=== PATIENT | female | born 1980 | race African-American/Black ===

== ENCOUNTER 2025-05-31 11:22 | Emergency (ER) | payer BC ==
[2025-05-31] MEDS ORDERED: Droperidol 5 MG/2 ML VIAL ONE (11:54)
[2025-05-31 12:49] LABS: #Basophils Less than 0.03 10x3/uL (0.0-0.2); #Eosinophils 0.08 10x3/uL (0.0-0.7); #Monocytes 0.43 10x3/uL (0.11-0.59); #Neutrophils 4.52 10x3/uL (1.40-6.50); %Basophils 0.3 % (0.0-1.0); %Eosinophils 1.2 % (0.0-10.0); %Lymphocytes 24.8 % (21.0-51.0); %Monocytes 6.4 % (0.0-10.0); %Neutrophils 67.0 % (42.0-75.0); Hematocrit 31.6 % (36.0-47.0); Hemoglobin 9.7 g/dL (12.0-16.0); Mean Corpuscular Hemoglobin 23.8 pg (27.0-31.0); Mean Corpuscular Volume 77.5 fL (78.0-98.0); Platelet Count 327 10x3/uL (130-400); Red Blood Cell (RBC) Count 4.08 mill/uL (4.20-5.40); White Blood Cell (WBC) Count 6.74 10x3/uL (4.8-10.8)
[2025-05-31 13:09] LABS: Troponin I Less than 0.010 ng/mL (< 0.028)
[2025-05-31 13:23] LABS: ALT (SGPT) 74 U/L (Less than 34); AST (SGOT) 33 U/L (11-34); Albumin 3.5 g/dL (3.1-4.5); Alkaline Phosphatase 79 U/L (40-110); Anion Gap 12 mmol/L (10-20); BUN (Urea Nitrogen) 8 mg/dL (7.0-18.7); Bilirubin, Total 0.2 mg/dL (0.3-1.2); Calc. Creatinine Clearance 0 mL/min (70-130); Calcium 9.1 mg/dL (7.8-10.44); Carbon Dioxide 22 mmol/L (22-29); Chloride 107 mmol/L (98-107); Globulin 4.3 g/dL (2.4-3.5); Glucose 86 mg/dL (70-105); Potassium 3.9 mmol/L (3.5-5.1); Sodium 137 mmol/L (136-145)
== END 2025-05-31 13:51 | disposition home or self-care (01) ==
LOC: ERS 11:22
DX: G97.82 Other postprocedural complications and disorders of nervous system (principal); R51.9 Headache, unspecified; R29.700 NIHSS score 0; D64.9 Anemia, unspecified; Z55.6 Problems related to health literacy
CPT/HCPCS: 36415; 70450; 80053; 83605; 84484; 85025; 87040; 96374; J1790